=== PATIENT | male | born 1955 | race Caucasian/White ===

== ENCOUNTER 2019-05-01 14:26 | Outpatient (CLI) | payer BC ==
--- NOTE | 2019-05-01 16:28 | RAD ---
EXAM: CHEST TWO VIEWS: History: Pre-operative evaluation. FINDINGS: Heart size is normal. The lungs are clear. No confluent pneumonia, overt edema or pleural effusion. IMPRESSION: No significant acute intrathoracic disease. POS: [facility]
== END 2019-05-01 14:27 | disposition home or self-care (01) ==
LOC: LABBT 14:26
PROVIDERS: ATTEND Thoracic Surgery (Cardiothoracic Vascular Surgery)
DX: Z01.818 Encounter for other preprocedural examination (principal); I65.22 Occlusion and stenosis of left carotid artery
CPT/HCPCS: 71046

== ENCOUNTER 2019-05-01 14:30 | Inpatient (IN) | payer BC ==
[2019-05-01 15:45] LABS: Hemoglobin 13.7 g/dL (14.0-18.0); Mean Corpuscular Hemoglobin 37.1 pg (27.0-31.0); Mean Platelet Volume 9.1 fL (7.4-10.4); Platelet Count 219 thou/uL (130-400); Red Blood Cell (RBC) Count 3.69 mill/uL (4.70-6.10); White Blood Cell (WBC) Count 7.4 thou/uL (4.8-10.8)
[2019-05-01 16:05] LABS: Anion Gap 15 mmol/L (10-20); BUN (Urea Nitrogen) 7 mg/dL (8.4-25.7); Calc. Creatinine Clearance 0 mL/min (70-130); Calcium 9.3 mg/dL (7.8-10.44); Carbon Dioxide 25 mmol/L (23-31); Chloride 102 mmol/L (98-107); Estimated GFR-MDRD 86; Glucose 100 mg/dL (80-115); Potassium 3.8 mmol/L (3.5-5.1); Sodium 138 mmol/L (136-145)
[2019-05-02] MEDS ORDERED: CEFAZOLIN 1 GM VIAL ONE (06:27)
[2019-05-02] MEDS ORDERED: Sodium Chloride 0.9% 100 ML ONE (06:27)
[2019-05-02] MEDS ORDERED: Protamine Sulfate 50 MG/5 ML VIAL ONE (06:30)
[2019-05-02] MEDS ORDERED: Heparin 5,000 UNITS/ML VIAL ONE (06:30)
[2019-05-02] MEDS ORDERED: Nitroglycerin 50 MG/250 ML BOT 250 ML ONE (06:32)
[2019-05-02] MEDS ORDERED: Phenylephrine 10 MG/ML VIAL ONE (06:32)
[2019-05-02] MEDS ORDERED: Fentanyl 100 MCG/2 ML VIAL ONE (06:33)
[2019-05-02] MEDS ORDERED: Midazolam HCl 2 mg/2 ml Vial ONE (06:33)
[2019-05-02] MEDS ORDERED: Famotidine/PF 20 mg/2ml Vial ONE (07:40)
[2019-05-02] MEDS ORDERED: Scopolamine 1.5 mg/72 hour Patch ONE (07:41)
[2019-05-02] MEDS ORDERED: HYDROcodone/Acetaminophen 5/325 mg Tablet PO PRN (08:53)
[2019-05-02] MEDS ORDERED: Fentanyl 100 MCG/2 ML VIAL SLOW IVP PRN ×2 (08:53)
[2019-05-02] MEDS ORDERED: hydrALAZINE 20 MG/ML VIAL SLOW IVP PRN (08:53)
[2019-05-02] MEDS ORDERED: Ondansetron PF 4 MG/2 ML Vial IVP PRN (08:53)
[2019-05-02] MEDS ORDERED: Acetaminophen 325 MG TAB PO PRN (08:53)
[2019-05-02] MEDS ORDERED: Aspirin Chewable 81 MG TAB PO SCH (09:00)
[2019-05-02] MEDS ORDERED: Non-Formulary Item 1 EACH (Esomeprazole Magnesium [Nexium] 20 MG) PO SCH (09:00)
[2019-05-02] MEDS ORDERED: Non-Formulary Item 1 EACH (Cyanocobalamin (Vitamin B-12) [Vitamin B-12] 1,000 MCG) PO SCH (09:00)
[2019-05-02] MEDS ORDERED: Non-Formulary Item 1 EACH (Benazepril Hcl [Benazepril Hcl] 20 MG) PO SCH (09:00)
[2019-05-02] MEDS ORDERED: Non-Formulary Item 1 EACH (Simvastatin [Zocor] 10 MG) PO SCH (09:00)
[2019-05-02] MEDS ORDERED: Ondansetron PF 4 MG/2 ML Vial ONE (09:43)
[2019-05-02] MEDS ORDERED: PROPOFOL 200 MG/20 ML VIAL ONE (09:43)
[2019-05-02] MEDS ORDERED: Rocuronium Bromide 10 MG/ML (10ML VIAL) ONE (09:43)
[2019-05-02] MEDS ORDERED: Dexamethasone 20 MG/5 ML VIAL ONE (09:43)
[2019-05-02] MEDS ORDERED: Succinylcholine Chloride 20 MG/ML 10 ml SYRINGE FS ONE (09:43)
[2019-05-02] MEDS ORDERED: Lidocaine 1% PF 5 ML VIAL ONE (09:43)
[2019-05-02] MEDS ORDERED: SUGAMMADEX SODIUM 500 MG/5 ML VIAL ONE (10:57)
[2019-05-02] MEDS: Aspirin 81 mg Enteric Coated Tablet PO SCH (12:48)
[2019-05-02] MEDS: Cyanocobalamin (Vitamin B-12) 1,000 MCG TAB PO SCH (12:48)
[2019-05-02] MEDS: Clopidogrel Bisulfate 75 MG TAB PO SCH (12:48)
[2019-05-02] MEDS: Lisinopril 20 MG TAB PO SCH (12:48)
[2019-05-02] MEDS: Sodium Chloride 0.9% 1,000 ML IV SCH ×2 (12:52→19:10)
[2019-05-02] MEDS: HYDROcodone/Acetaminophen 5/325 mg Tablet PO PRN ×2 (13:40→19:44)
[2019-05-02 13:47] VITALS: BMI 29.0
[2019-05-02] MEDS ORDERED: Polyvinyl Alcohol 1.4%/Povidone 0.6% Opth Drops EA EYE PRN (14:50)
[2019-05-02] MEDS ORDERED: Gentamicin Ophth Ointment 0.3% 3.5 gm Tube R EYE SCH (16:15)
--- NOTE | 2019-05-02 16:24 | OP ---
DATE OF PROCEDURE: 05/02/2019 PROCEDURE PERFORMED: Left carotid endarterectomy. PREOPERATIVE DIAGNOSIS: Symptomatic left carotid stenosis. POSTOPERATIVE DIAGNOSIS: Symptomatic left carotid stenosis. ANESTHESIA: General endotracheal anesthesia. INDICATIONS: The patient is a 64-year-old man, who had an episode of dysarthria and was found to have a high-grade stenosis involving his left internal carotid artery. He is now taken to the operating room for endarterectomy. FINDINGS: Pre-shunt clamp time 4 minutes. Shunt time 23 minutes. Post-shunt clamp time 3 minutes. Heavily calcified ulcerated plaque at the carotid bulb and proximal internal carotid artery extending about 4 cm into the internal carotid artery and associated with a high-grade stenosis at the origin of the internal carotid artery. The ICA was large vessel with brisk back bleeding. NARRATIVE REPORT: After informed consent was obtained, the patient was taken the operating room, placed in supine position on the operating table. After the induction of general anesthesia, the patient's neck was extended and rotated towards the right. His left neck was then prepped and draped in sterile fashion. An oblique incision was made in a skin crease on the left neck using a scalpel and electrocautery, dissection was carried through the subcutaneous tissue and platysma, anterior medial to the sternocleidomastoid muscle and internal jugular vein. The facial vein was dissected free. It was a short broad vessel and was opted to divide that between hemostats and ligated with transfixing ligatures. The common carotid artery was dissected free from the sheath in the vagus nerve and looped with a vessel loop. The dissection was carried cephalad up beyond the level of the digastric muscle and then beyond the level of the hypoglossal nerve. Once the nerve had been identified and its sling vessels ligated and divided. The external carotid system was looped in mass with a vessel loop and the carotid was freed from the vagus to mobilize it beyond the level of the plaque that could be palpable and extending well beyond the bifurcation. After adequate circulation time of heparin, the internal carotid, common carotid, and external carotid systems were sequentially occluded. A longitudinal arteriotomy was made in the distal common carotid artery and extended proximally and distally with Humphrey scissors. An endarterectomy plane was developed at the level of the common carotid artery and transected with scissors. The plaque was everted from the external carotid system and then broken off distally in the internal carotid with a feathering edge. The endarterectomy bed was forcefully irrigated, paying particular attention to the distal feather and proximal transection points. The distal feather required minimal tailoring. An intraluminal carotid shunt was inserted first distally in the internal carotid and then, proximally in the common carotid, aspirating on the side port of the shunt before allowing antegrade flow through it into the internal carotid system even with the shunt clamp applied distally. There was still bleeding around the shunt, which required control with irrigation and suction. The endarterectomy bed was again forcefully irrigated and a very small amount of remaining debris was removed. The arteriotomy was then sewn from either apex with running 6-0 Prolene suture with about a centimeter of arteriotomy at the common carotid level left so. The shunt was clamped and removed and vascular control reestablished on the internal carotid at its origin and on the common carotid with vessel loops. The remaining arteriotomy was sewn. The vessels were forward and back bled to allow for flushing of any air or residual debris out the arteriotomy or into the external carotid system. The suture line was secured. Antegrade flows allowed first into the external carotid and then into the internal carotid. The suture line was inspected. One bleeding point near the point, where the two sutures were tied together, required a [id number] Prolene suture, which was done with 6-0 Prolene. There were two areas, one at the distal apex, which was controlled with a 7-0 pursestring suture and one in the mid ICA, which was controlled with a 7-0 [id number]. In light of the patient's ongoing Plavix administration and oozing from the dissection bed was opted to reverse the heparin with protamine. The wound was packed off and after several minutes, hemostasis was adequate for closure. The platysma was reapproximated with 3-0 Vicryl. The skin was closed with a running 5-0 Vicryl subcuticular suture and Steri-Strips. The wound was dressed. The patient was awakened and extubated in the operating room and taken to recovery area in stable condition, moving all extremities. Job ID: [id number]
[2019-05-02] MEDS: Gentamicin Ophth Ointment 0.3% 3.5 gm Tube R EYE SCH (20:22)
[2019-05-02] MEDS ORDERED: Simvastatin 5 MG TAB PO SCH (21:00)
[2019-05-03] MEDS: Cyanocobalamin (Vitamin B-12) 1,000 MCG TAB PO SCH (07:37)
[2019-05-03] MEDS: Lisinopril 20 MG TAB PO SCH (07:37)
[2019-05-03] MEDS: Aspirin 81 mg Enteric Coated Tablet PO SCH (07:38)
[2019-05-03] MEDS: Gentamicin Ophth Ointment 0.3% 3.5 gm Tube R EYE SCH (07:38)
[2019-05-03] MEDS: Clopidogrel Bisulfate 75 MG TAB PO SCH (07:38)
[2019-05-03 08:11] VITALS: TEMP 98.7
--- NOTE | 2019-05-04 02:01 | DIS ---
DATE OF ADMISSION: 05/02/2019 DATE OF DISCHARGE: 05/03/2019 PRINCIPAL DIAGNOSIS: Symptomatic left carotid stenosis. PROCEDURE PERFORMED: Left carotid endarterectomy. HISTORY OF PRESENT ILLNESS AND HOSPITAL COURSE: The patient is a 64-year-old man who had had a left hemispheric TIA manifested as dysarthria about 3 years ago. He had done well on medical management, but then had another episode of dysarthria recently. It lasted about an hour and a half and [place] He was started on Plavix at that time. CT angiography was suggestive of high-grade left carotid stenosis. Arrangements were made for elective readmission for endarterectomy. At the time of surgery, he was found to have extensively calcified and ulcerated plaque at the carotid bulb extending well into the internal carotid artery and it was associated with a high-grade stenosis at the origin of the internal carotid. His postoperative course was really only remarkable for some right eye pain, irritation and tearing that resolved overnight with saline eye drops and gentamicin ophthalmic ointment. Today on postoperative day #1, that pain has resolved. He is breathing and swallowing without difficulty. His tongue is midline. His voice is normal. He moves all extremities normally and his wound is associated with minimal swelling. He is being discharged home now to resume his home medications with the exception of Plavix. He already has his week's worth of medicine loaded up in his pill box and is not 100% sure which of his pills are Plavix, I told him it would be okay to take those few doses that he has already doled out but that he does not need to continue it custodial. I will plan on seeing him in the office in around 2 weeks and he is to be enrolled in lifelong carotid surveillance. Job ID: [id number] [facility]
== END 2019-05-03 10:09 | disposition home or self-care (01) | DRG 39 ==
LOC: SURG A 05-02 06:01 → EDSTATUS 05-02 09:42 → CCU 05-02 12:11
PROVIDERS: ADMIT Thoracic Surgery (Cardiothoracic Vascular Surgery); ATTEND Thoracic Surgery (Cardiothoracic Vascular Surgery)
PROC: 03CL0ZZ Extirpation of Matter from Left Internal Carotid Artery, Open Approach (ICD-10-PCS; principal; 2019-05-02)
DX: I65.22 Occlusion and stenosis of left carotid artery (principal); H57.11 Ocular pain, right eye; I10 Essential (primary) hypertension; E78.5 Hyperlipidemia, unspecified; Z86.73 Personal history of transient ischemic attack (TIA), and cerebral infarction without residual deficits; Z79.899 Other long term (current) drug therapy; Z79.02 Long term (current) use of antithrombotics/antiplatelets
CPT/HCPCS: 71046; 80048; 85027; 86850; 86900; 86901; 93005; 93010; J0690; J1100; J1644; J2001; J2250; J2370; J2405; J2704; J2720; J3010; J3490; S0028

== ENCOUNTER 2023-09-09 06:05 | Day surgery (SDC) | payer MEDICARE ==
[2023-09-07 13:03] VITALS: BMI 28.3
[~2023-09-09 06:05] MED LIST: EPINEPHrine 0.3 MG in Ophthalmic Irrigation Solution 500 ML IRR SCH
[2023-09-09] MEDS ORDERED: PHENYLephrine 2.5% Ophth Soln 15 ml Bottle ONE (06:23)
[2023-09-09] MEDS ORDERED: Cyclopentolate 1% Opth Drop 2 ML BOT ONE (06:23)
[2023-09-09] MEDS ORDERED: Midazolam HCl 2 mg/2 ml Vial ONE (06:26)
[2023-09-09] MEDS ORDERED: Propofol 1,000 MG/100 ML VIAL IV ONE (06:29)
[2023-09-09] MEDS ORDERED: Lidocaine 1% PF 5 ML VIAL ONE (06:32)
[2023-09-09] MEDS ORDERED: Triamcinolone 40 MG/ML VIAL ONE (07:14)
[2023-09-09] MEDS ORDERED: Maxitrol 0.1% Opth Oint 3.5 GM TUBE ONE (07:14)
[2023-09-09] MEDS ORDERED: Lidocaine 4% PF 5 ML AMP ONE (07:14)
[2023-09-09] MEDS ORDERED: Bupivacaine 0.75% 10 ML VIAL ONE (07:14)
[2023-09-09] MEDS ORDERED: CEFAZOLIN 1 GM VIAL ONE (07:14)
== END 2023-09-09 08:15 | disposition home or self-care (01) ==
LOC: SDC 06:05
PROVIDERS: ATTEND Ophthalmology Retina Specialist
PROC: 08T43ZZ Resection of Right Vitreous, Percutaneous Approach (ICD-10-PCS; principal; 2023-09-09)
DX: H43.311 Vitreous membranes and strands, right eye (principal)
CPT/HCPCS: 67041; 93005; J0171; J2250; J2704; 93010; J0690; J3301; J3490